=== PATIENT | female | born 1985 | race American Indian/Alaskan Native ===

== ENCOUNTER 2021-10-09 14:58 | Emergency (ER) | payer OTHER ==
[2021-10-09] MEDS ORDERED: CYCLOBENZAPRINE 10 MG TAB PO ONE (15:56)
[2021-10-09] MEDS ORDERED: KETOROLAC 10 MG TAB PO ONE (15:56)
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
[2021-10-09 17:10] VITALS: BP 124/84
== END 2021-10-09 17:09 | disposition home or self-care (01) ==
LOC: ED 14:58
DX: M54.2 Cervicalgia (principal); M54.9 Dorsalgia, unspecified; V89.2XXA Person injured in unspecified motor-vehicle accident, traffic, initial encounter; Y93.89 Activity, other specified; Y92.89 Other specified places as the place of occurrence of the external cause; Y99.8 Other external cause status
CPT/HCPCS: 72040; 72070; 99283